=== PATIENT | female | born 1955 | race Caucasian/White ===

== ENCOUNTER 2016-08-16 09:09 | Inpatient (IN) | payer SELFPAY ==
[~2016-08-16] VITALS: Ht 172.7 cm; Wt 87.9 kg
--- NOTE | ~2016-08-16 | CON ---
PATIENT'S NAME: NIMA ARSHAD [facility] AGE: 61 Y [address] ROOM: [address] [place], [place] [address] LOCATION: GPCU ADMIT DATE: 08/16/2016 Consultation DISCHARGE DATE: FAMILY PHYSICIAN: PHYSICIAN, NO ATTENDING PHYSICIAN: LINDY ISAAC V DATE OF CONSULTATION: 08/23/2016 REFERRING PHYSICIAN: Yuki Parham MD REASON FOR CONSULTATION: Evaluation and management of hypoxia. CHIEF COMPLAINT: Shortness of breath. HISTORY OF PRESENT ILLNESS: This is a 61-year-old female with history of longstanding tobacco abuse, recent heavy alcohol abuse, anxiety, posttraumatic stress disorder, and other comorbidities, who was admitted on August 16, 2016, for profound weakness in context of heavy alcohol abuse. The patient presented to the emergency room because of extreme weakness and tiredness with generalized tremors. She was found to have alcoholic ketoacidosis with a pH of 7.08 and a bicarb of 13. Her pCO2 was 40 at that time. She was admitted to the hospital and started on alcohol detoxification pathway. However, during her hospital stay, she started having paroxysmal atrial fibrillation episodes with a rapid ventricular rate at times of up to 200. For this reason, she was started on Cardizem drip and therapeutic Lovenox. At the time of her admission, the patient was not requiring supplemental oxygen. However, approximately 2 days after admission, she started requiring oxygen between 2 and 3 liters. An ABG done today on room air showed a pH of 7.48, pCO2 of 41, and pO2 of 54 with a base excess of 6.4. Chest x-ray from August 19, 2016, revealed vascular congestion while a chest x-ray from yesterday raised the possibility of left lower lobe atelectasis. The patient denies ever being diagnosed with chronic respiratory issue including asthma, COPD, and pulmonary fibrosis. Prior to this admission, she denies feeling short of breath or having a chronic cough. She has been feeling more short of breath lately especially when she ambulates on room air. An overnight oximetry from August 21, 2016, to August 22, 2016, revealed severe nocturnal hypoxia after the patient spent 9 hours, 41 minutes, and 8 seconds with oxygen saturation less than 89%. Her desaturation event index was elevated at 10.4 at that time. She also complains of chronic excessive daytime sleepiness and fatigue especially after she started drinking heavily. Currently, she is on therapeutic doses of Lovenox and recently was started on Coumadin for her paroxysmal atrial fibrillation. She denies lower extremity swelling, although she had intermittent palpitations. PATIENT'S NAME: NIMA ARSHAD [facility] AGE: 61 Y [address] ROOM: [facility] [place] [address] LOCATION: GPCU ADMIT DATE: 08/16/2016 Consultation DISCHARGE DATE: FAMILY PHYSICIAN: PHYSICIAN, NO ATTENDING PHYSICIAN: LINDY ISAAC V PAST MEDICAL HISTORY: 1. Anxiety. 2. Depression. 3. PTSD with panic attacks. 4. Fibromyalgia. 5. Gastroesophageal reflux disease. PAST SURGICAL HISTORY: She had a complete hysterectomy in 2001. ALLERGIES: NO KNOWN DRUG ALLERGIES CURRENT MEDICATIONS: Reviewed as per chart. Notably, she was also started on Flagyl p.o. for C. diff colitis diagnosed on this admission on August 18. FAMILY HISTORY: Her father had Alzheimer disease and her mother had breast cancer. 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 Sometimes she is exposed to adhesives, although she does not wear any protective masks. She has been smoking approximately 6 cigarettes per day for a long time. She has had heavy alcohol abuse of approximately one pint of rum every day for the last 6 weeks because of multiple stressors at work. There is no history of illicit drug abuse. REVIEW OF SYSTEMS: Pertinent positives and negatives as per history of present illness. She also has intermittent headaches; impaired vision; seasonal allergies with recurrent sinus issues; heartburn; diarrhea, which has improved lately; anxiety/depression; panic attacks; and dysuria. Otherwise, a 12-point review of systems was performed and was negative. PHYSICAL EXAMINATION: VITAL SIGNS: Temperature was 98.1, heart rate was 85, respiratory rate was 18, blood pressure was 98/63, and oxygen saturation 91% on 2 liters and 83% on room air. Weight 196 pounds. Height 5 feet and 8 inches with a BMI of 29.9. GENERAL: She is a pleasant, female, sitting up in bed, seems anxious at times, but in no acute distress. HEENT: Atraumatic head. PERRLA. EOMI. Anicteric sclerae. Moist oral mucosa. No pharyngeal erythema. No oral thrush. NECK: Supple. No JVD. No LAD. Trachea midline. No thyromegaly. RESPIRATORY: She had decreased breath sounds without dullness on percussion at the left lung base, otherwise clear to auscultation. CARDIOVASCULAR: Regular rhythm and rate. No murmur, rubs, or gallops. ABDOMEN: Soft, nontender, and nondistended. Bowel sounds are present. PATIENT'S NAME: NIMA ARSHAD [facility] AGE: 61 Y [address] ROOM: [id number] [place] [id number] LOCATION: GPCU ADMIT DATE: 08/16/2016 Consultation DISCHARGE DATE: FAMILY PHYSICIAN: PHYSICIAN, NO ATTENDING PHYSICIAN: LINDY ISAAC V EXTREMITIES: No lower extremity edema. No cyanosis and no clubbing. LABORATORY DATA: Pertinent data as per history of present illness. She also had a bedside spirometry done today, which revealed an FVC of 1.36 L, which is 36% of predicted with FEV1 being 1.07 L, which is 36% of predicted as well. The FEV1 over FVC was normal at 78.2%. She had a very significant bronchodilator response of 39% at the level of FVC and 47% at the level of FEV1. INR was 1.4. Renal panel from yesterday was normal except a mildly low calcium of 8 and on low albumin of 2.1. ASSESSMENT: 1. Hypoxia. This is most likely due to an acute event, although I am not ruling out of chronic component like pulmonary fibrosis. More acute etiologies could be pulmonary edema, pulmonary embolism, or atelectasis. 2. Restrictive lung disease. This is suggested by her pulmonary function test with a severe decrease in her FVC and normal FEV1 over FVC. 3. Left lower lobe atelectasis. This is of unclear etiology, but possibly contributing to her hypoxia. 4. Tobacco abuse. This is chronic, although in not very large quantity. 5. Clostridium difficile colitis. 6. Excessive daytime sleepiness. 7. Metabolic alkalosis. This is mild and most likely in context of diuresis after the patient received furosemide yesterday. 8. Paroxysmal atrial fibrillation. Rate and rhythm control right now on chronic anticoagulation. PLAN: 1. We will check a chest CT with PE protocol to look for potential pulmonary embolism and atelectasis. 2. We will repeat a renal panel. I will add a proBNP to look for any evidence of heart strain. 3. I will start the patient on incentive spirometer to improve her deep breathing exercises. 4. The Hospitalist Team will continue antibiotics for the C. diff colitis. 5. I strongly encouraged the patient to stop smoking. The current assessment and plan was discussed with the patient and Dr. Parham. I would like to thank you, Dr. Parham, for giving me the opportunity to participate in this patient's care. PAIGE Noni WALKER MD PATIENT'S NAME: NIMA ARSHAD [facility] AGE: 61 Y [address] ROOM: [place] [address] [facility] AD[facility] DATE: 08/16/2016 Consultation DISCHARGE DATE: FAMILY PHYSICIAN: PHYSICIAN, NO ATTENDING PHYSICIAN: LINDY ISAAC/shaheed /[id number] d: 08/23/162047 t: 08/24/16 0936, CONSULTATION REPORT
--- NOTE | ~2016-08-16 | HP ---
PATIENT'S NAME: JEANCARLOS [facility] AGE: 61 Y [address] ROOM: [address] [address] LOCATION: GPCU ADMIT DATE: 08/16/2016 History & Physical DISCHARGE DATE: FAMILY PHYSICIAN: PHYSICIAN, NO ATTENDING PHYSICIAN: LINDY ISAAC V DATE OF SERVICE: CHIEF COMPLAINT: Alcohol abuse. HISTORY OF PRESENT ILLNESS: The patient is a 61-year-old female with a past medical history of posttraumatic stress disorder who has been having some difficulties with alcohol for the last 3 years. She presented to the ER after approximately 6 weeks of continuous daily alcohol consumption. Today, the patient became progressively more weak and tired. She reports tremors and wanted overall help for her difficulty. When she presented to the ER, she was found to have alcoholic ketoacidosis with pH 7.08, pCO2 40, and bicarb of 13. She also had alcohol level 0.194. She denies any suicidal or homicidal ideations and just wants help. REVIEW OF SYSTEMS: All systems have been reviewed and are negative aside from pertinent positives mentioned above. PAST MEDICAL HISTORY: Posttraumatic stress disorder and depression, denies otherwise. SOCIAL HISTORY: Significant for alcohol use, which the patient says about a bottle of rum daily. She also smokes approximately half-pack cigarettes a day for a long period of time. No other toxic habits that she endorses. FAMILY HISTORY: Reviewed and is noncontributory due to known underlying etiology for her presentation. PHYSICAL EXAMINATION: VITAL SIGNS: 151/70, respirations are 18, pulse is 115, temperature is 98.5, and satting 94% on room air. GENERAL: Appears as a well-developed, somewhat obese, elderly female, in no acute distress. PATIENT'S NAME: JEANCARLOS [facility] AGE: 61 Y [address] ROOM: [address] [address] LOCATION: GPCU ADMIT DATE: 08/16/2016 History & Physical DISCHARGE DATE: FAMILY PHYSICIAN: PHYSICIAN, NO ATTENDING PHYSICIAN: LINDY ISAAC V NEUROLOGICAL: Exam is significant for some fine tremor, but no focalizing deficit. EYES: Exam shows pupils are equal and reactive to light. LYMPHATIC: Exam shows no cervical lymphadenopathy. ENDOCRINE: Exam shows no thyromegaly. LUNGS: Clear to auscultation in all waterman. GI: Abdomen is soft, nontender, nondistended. : Exam reveals no costovertebral angle tenderness. VASCULAR: Exam reveals 2+ pedal pulses. MUSCULOSKELETAL: Exam shows no muscle or joint abnormalities. SKIN: Warm and dry. PSYCHIATRIC: Exam is negative for suicidal or homicidal ideations, but is significant for some depression. LABORATORY DATA: Lab exams of significance are described in the HPI. EKG shows normal sinus rhythm with no other significant abnormalities. ASSESSMENT AND PLAN: This is a 61-year-old female who will be admitted with: 1. Alcoholic ketoacidosis. She has already received normal saline as well as been started on dextrose in the ER. We will continue her on dextrose and intravenous hydration. We will recheck her electrolytes as well as a VBG, lactate, and ketones after several hours of this therapy. If we do not see considerable improvement, we will consider a bicarb drip though at this point I do not see its utility as we have to correct the underlying problem. 2. Acute alcohol intoxication. We will provide her with thiamine, folate, and multivitamin. 3. Expected alcohol withdrawal. Some of this is already occurring. We will put her on p.r.n. Ativan for now. We will start her on a formal Librium taper tomorrow morning. 4. Depression. We will continue Prozac. 5. Deep vein thrombosis prophylaxis will be instituted if the patient stays in the hospital for more than 48 hours. Additional management will depend on clinical course. Time dedicated to this patient encounter is 35 minutes. MD NIURKA ELLISON/shaheed PATIENT'S NAME: NIMA ARSHAD [facility] AGE: 61 Y [address] ROOM: [id number] [place] [id number] [facility] AD[facility] DATE: 08/16/2016 History & Physical DISCHARGE DATE: FAMILY PHYSICIAN: PHYSICIAN, NO ATTENDING PHYSICIAN: LINDY ISAAC V /[id number] D: [id number] HISTORY & PHYSICAL
--- NOTE | ~2016-08-16 | ECHO ---
Transthoracic Echocardiography Report (TTE) Demographics Patient Name NIMA ARSHAD Date of Study 08/18/2016 Patient Number [id number] Visit Number [id number] Date of 1955 Room Number G6314 Gender Female Number Age 61 year(s) Referring William Garrido V Asic Verification Engineer Gretchen Hampton [facility], Physician RVT Eliza Dacosta Physician Interpreting Eliza Dacosta Associate Professor Of Radiology Physician Supervising Ordering Eliza Dacosta MD/MLP Physician Nurse Stress Senior Java Developer Conclusions Summary The estimated left ventricular ejection fraction is 55%. Diastolic assessment reveals Grade I diastolic dysfunction. Mild tricuspid regurgitation by color Doppler. Mild pulmonic valve regurgitation by color Doppler. Procedure Type of Study TTE procedure:2D Echocardiogram. Procedure Date Date: 08/18/2016 Start: 09:35 AM Study Location: Inpatient Portable Technical Quality: Fair due to poor acoustical window. Indications:Atrial fibrillation. Additional Indications:rvr Appropriate Use Criteria: 9 Patient Status: Routine Rhythm: Atrial fibrillation HR: 102 bpm BP: 106/57 mmHg M-Mode/2D Measurements LV Diastolic Dimension: 5.25 cm LV Systolic Dimension: 3.76 cm LV Septum Diastolic: 1 cm LV PW Diastolic: 0.94 cm AO Root Dimension: 2.4 cm Cardiac Output: 9.07 l/min AV Cusp Separation: 1.7 cm RV Diastolic Dimension: 1.45 cm LA volume: 37 ml IVC Inspiration: 0.7 cm LVOT: 2.2 cm RV Base: 4.13 cm LVOT VTI: 23.4 cm RV Mid: 3.19 cm LV Stroke volume: 88.91 ml TAPSE: 2.06 cm TDI-S': 15 cm/s Doppler Measurements AV Peak Velocity: 1.48 m/s MV Peak E-Wave: 0.66 m/s AV Peak Gradient: 8.76 mmHg MV Peak A-Wave: 0.81 m/s AV Mean Gradient: 5 mmHg MV E/A Ratio: 0.81 LVOT Peak Velocity: 0.99 m/s MV P1/2t: 61 msec TR Gradient:26.01 mmHg PV Peak Velocity: 0.86 m/s Estimated RAP:3 mmHg PV Peak Gradient: 2.95 mmHg Estimated RVSP: 29 mmHg Estimated PASP: 29.01 mmHg E' Septal Velocity: 0.07 m/s A' Septal Velocity: 0.12 m/s E' Lateral Velocity: 0.09 m/s MV E/E' Ratio: 13 Findings Left Ventricle The estimated left ventricular ejection fraction is 50-55%.Diastolic assessment reveals Grade I diastolic dysfunction. Right Ventricle Grossly normal right ventricle structure and function. Left Atrium Grossly normal left atrial size. Right Atrium Grossly normal right atrial size. Mitral Valve Trivial mitral regurgitation by color Doppler. Aortic Valve The aortic valve is mildly sclerotic. Tricuspid Valve Mild tricuspid regurgitation by color Doppler. Pulmonic Valve Mild pulmonic valve regurgitation by color Doppler. Pericardial Effusion No evidence of pericardial effusion. Miscellaneous Visualized portions of the aortic root and ascending aorta appear normal in size. Pleural Effusion No evidence of pleural effusion. Signature dtt: YUDITH BOSS dtd: 08/18/16 0935 Physician Self Edit
--- NOTE | ~2016-08-16 | PUL ---
PATIENT'S NAME: NIMA ARSHAD [facility] AGE: 61 Y [address] ROOM: [facility] [place] [address] LOCATION: GPCU ADMIT DATE: 08/16/2016 Pulmonary DISCHARGE DATE: 08/25/2016 FAMILY PHYSICIAN: PHYSICIAN, NO ATTENDING PHYSICIAN: Hema Thomas V NAME OF PROCEDURE: Bedside Spirometry DATE OF PROCEDURE: August 23, 2016 TECH: ISAÍAS Echols REASON FOR EXAM: Hypoxia RESULTS: FVC was 1.36 liters which is 36% of predicted and low, FEV1 was 1.07 liters which is 36% of predicted and low, and FEV1/FVC was 78.2% and normal. The flow volume curve did not reveal any significant airflow limitation. After bronchodilator administration FVC increased to 1.89 liters which is a 39% increase and FEV1 increased to 1.57 liters which is a 47% increase. FEV1/FVC was 82.9%. PHYSICIAN INTERPRETATION: The patient has no airflow limitation but has a significant bronchodilator response. There is suggestion of restrictive lung disease but lung volumes are needed to confirm that. MD DONNA PERKINS/angie /[id number] dtt: 08/27/16 1554 , PAIGE WALKER dtd: 08/27/16 0815
--- NOTE | ~2016-08-16 | DS ---
PATIENT'S NAME: NIMA ARSHAD [facility] AGE: 61 Y [address] ROOM: [place] [address] LOCATION: GPCU ADMIT DATE: 08/16/2016 Discharge Summary DISCHARGE DATE: 08/25/2016 FAMILY PHYSICIAN: PHYSICIAN, NO ATTENDING PHYSICIAN: Hema Thomas V ADDENDUM: Home O2 at 2 L/minute at night and this is arranged through [facility] and will be setup today to use 2 L every night until she can have her polysomnography. BJORN GANN MD LM/shaheed /[id number] d: 08/26/16 0244 t: 09/03/16 0858, DISCHARGE SUMMARY
--- NOTE | ~2016-08-16 | ER ---
PATIENT'S NAME: JEANCARLOS [facility] AGE: 61 Y [address] ROOM: [place] [address] LOCATION: GPCU ADMIT DATE: 08/16/2016 ER/Outpatient Report DISCHARGE DATE: FAMILY PHYSICIAN: PHYSICIAN, NO ATTENDING PHYSICIAN: LINDY ISAAC V Time of Arrival: 0909 hours. Time of Evaluation: 0914 hours. CHIEF COMPLAINT: Anxiety. HISTORY OF PRESENT ILLNESS: The patient is a 61-year-old female, who presents to the emergency department today with a chief complaint of anxiety. She reports that over the past 8 weeks, she has had some issues at work. She reports that she has had increased alcohol intake since. Over the past couple of days, she has not been feeling well. She has continued her alcohol intake. She has had some nausea and vomiting x5 over the past 24 hours. She denies any suicidal ideation, homicidal ideation, no visual or auditory hallucinations. PAST MEDICAL HISTORY: PTSD. PAST SURGICAL HISTORY: Hysterectomy. SOCIAL HISTORY: The patient smokes half pack per day. Drinks alcohol daily over the past couple of weeks. Does have a history of alcohol use in the past. SOCIAL HISTORY: The patient denies any illicit drug use. ALLERGIES: NO KNOWN DRUG ALLERGIES. MEDICATIONS: 1. Hydroxyzine. 2. Fluoxetine. PRIMARY CARE DOCTOR: None. REVIEW OF SYSTEMS: PATIENT'S NAME: JEANCARLOS NIMA L [facility] AGE: 61 Y [address] ROOM: [place] [address] LOCATION: GPCU ADMIT DATE: 08/16/2016 ER/Outpatient Report DISCHARGE DATE: FAMILY PHYSICIAN: PHYSICIAN, NO ATTENDING PHYSICIAN: LINDY ISAAC V All systems are reviewed by myself and are negative with the exception of those discussed in the HPI and past medical history. PHYSICAL EXAMINATION: VITAL SIGNS: Blood pressure 158/89, pulse 124, respiratory rate 20, temperature 98.1, oxygen saturation 98% on room air. GENERAL: The patient is a 61-year-old female, who is anxious and crying, but appears in no other acute distress. HEENT: Normocephalic, atraumatic. Pupils are equal, round, and reactive to light. NECK: Supple. There is no nuchal rigidity. CARDIOVASCULAR: Tachycardic. No murmurs, rubs, or gallops. LUNGS: Clear to auscultation bilaterally. No wheezes, rales, or rhonchi. ABDOMEN: Soft, nontender, and nondistended. No rebound, rigidity, or guarding. MUSCULOSKELETAL: The patient moves all 4 extremities. SKIN: Warm and dry. There are no rashes or lesions noted. LABORATORY DATA AND X-RAYS: Labs and x-rays are obtained. CBC is normal except for hemoglobin of 15.4, hematocrit 48.4. CMP is unremarkable except for a CO2 of 13, glucose 63. AST is 127, ALT is normal, alkaline phosphatase is normal. Alcohol is 0.194. Salicylates are 3.6. Acetaminophen is less than 2.0. Urinalysis shows protein 30, ketone 150, blood 150, white blood cell count negative, rbc's 50-100, epithelials are rare, bacteria is negative. TSH is normal. EKG is obtained, is interpreted by myself, shows sinus tachycardia with a rate of 109, normal axis, normal interval, no ST elevation. There are T-wave inversions in V1, V2, V3. Urine drug screen is negative. Repeat renal panel is unremarkable except for CO2 of 11, glucose of 60. acetone is positive 1:8. Venous blood gas is obtained, does show 7.08, 40, 45, 11.9, -17.4. Lactate is 5.4. IMPRESSION: 1. Alcoholic ketoacidosis. 2. Stress disorder. 3. Alcohol intoxication. 4. Elevated liver enzymes. 5. Abnormal EKG. 6. Hematuria. 7. Initial visit. EMERGENCY DEPARTMENT COURSE: The patient was brought back to the examination room. Seen and evaluated by myself. IV is established. Laboratory analysis and imaging are obtained as described above. The patient was given 3 L of normal saline. She was given 4 mg of Zofran IV. She was given 0.5 mg Ativan. She was given another 4 mg PATIENT'S NAME: NIMA ARSHAD [facility] AGE: 61 Y [address] ROOM: [address] [place] [id number] LOCATION: GPCU ADMIT DATE: 08/16/2016 ER/Outpatient Report DISCHARGE DATE: FAMILY PHYSICIAN: PHYSICIAN, NO ATTENDING PHYSICIAN: LINDY ISAAC and 1 g of Tylenol as well as another 0.5 mg Ativan, 100 mg of thiamine. She was started on D5 1/2 normal saline. I discussed results with the patient and her friend who is at the bedside. I have contacted Dr. Isaac with the Hospitalist Service. He does agree to accept the patient for further evaluation, treatment, and management. DISPOSITION: The patient is admitted under the care of Hospitalist Service in stable condition. DO NAHOMY FRANCO/modl /[id number] d: 08/16/162039 t: 08/24/16 0854, OUTPATIENT REPORT
--- NOTE | ~2016-08-16 | CON ---
PATIENT'S NAME: NIMA ARSHAD [facility] AGE: 61 Y [address] ROOM: [address] [address] [facility] ADMIT DATE: 08/16/2016 Consultation DISCHARGE DATE: FAMILY PHYSICIAN: PHYSICIAN, NO ATTENDING PHYSICIAN: LINDY ISAAC V REFERRING PHYSICIAN: Jef Branham MD REASON FOR CONSULT: Recurrent episodes of atrial fibrillation with rapid ventricular rate. HISTORY OF PRESENT ILLNESS: Ms. Arshad is a 61-year-old female with a past medical history of posttraumatic stress disorder. The patient stated that she started having binge drinking for the last 6 weeks. She was drinking almost a pint of rum every day. She also smokes about 6 cigarettes per day. On the day of admission, the patient stated that she felt progressively more weak and tired, and she also noted tremors and sought medical help. When she presented to the emergency room, she was found to have alcoholic ketoacidosis with a pH of 7.08, pCO2 of 40, bicarbonate of 13, and alcohol level was 0.194. Presently, she is complaining of anxiety. She denied any chest pain. No history of increasing shortness of breath. She complained of frequent palpitations. The patient denied any syncopal episodes. She was placed on medical therapy for alcoholic ketoacidosis and alcohol detoxification. She was noted to have recurrent episodes of atrial fibrillation with rapid ventricular rate with these episodes mostly lasting less than a minute. No history of loss of consciousness. No history of chest pain. No history of fever. REVIEW OF SYSTEMS: The patient stated she has noted gradual decrease in vision. History of nausea and vomiting is present. No history of dysphagia. No history of chest pain or increasing shortness of breath. History of frequent palpitations is present. No history of loss of consciousness. She also complained of frequent diarrhea. No history of leg pains or leg cramps. Review of other systems is essentially negative. PAST MEDICAL HISTORY: Posttraumatic stress disorder and depression. PERSONAL HISTORY: Smokes 6 cigarettes per day, and history of alcoholic binge drinking is present. SOCIAL HISTORY: The patient is and lives by herself. FAMILY HISTORY: PATIENT'S NAME: NIMA ARSHAD [facility] AGE: 61 Y [address] ROOM: [address] [address] [facility] ADMIT DATE: 08/16/2016 Consultation DISCHARGE DATE: FAMILY PHYSICIAN: PHYSICIAN, NO ATTENDING PHYSICIAN: LINDY ISAAC V The patient denied family history of premature coronary artery disease. PHYSICAL EXAMINATION: GENERAL: She is awake, alert, oriented, and appears anxious. VITAL SIGNS: Her pulse rate is 115 beats per minute, blood pressure is 113/70 mmHg, and respiratory rate is 18. The patient has frequent bursts of atrial fibrillation with rapid ventricular rate with ventricular rate of 200 beats per minute. HEENT: Her head is atraumatic and normocephalic. Tongue is moist. NECK: No significant jugular venous distention is present. SKIN: Warm and dry. CARDIOVASCULAR: S1 and S2 are audible. They are regular in rate and rhythm. However, during episodes of rapid ventricular rate, her heart rhythm is irregular. RESPIRATORY: Her chest is clear to auscultation. ABDOMEN: Mildly distended. Bowel sounds are present. EXTREMITIES: No significant pedal edema. NEUROLOGIC: She is awake, alert, and oriented. Appears anxious. LABORATORY DATA: Arterial blood gases: First set was 7.08 pH, pCO2 of 40, and PO2 of 45. Second set was pH 7.31, pCO2 of 33, and PO2 of 105. Sodium 138, potassium 3.8, chloride 105, CO2 of 22, glucose 127, calcium 7.2, BUN 11, and creatinine 0.7. Total protein 5.7. Albumin 2.9. Alkaline phosphatase 86, AST 85, and ALT 53. Magnesium 1.9. Salicylate level 3.6. White blood cell count 6.8, hemoglobin 12.1, and platelet count 157, which has decreased from 15.4, possibly secondary to dilution anemia. EKG showed atrial fibrillation with ventricular rate of 202 beats per minute. Nonspecific ST-T wave changes. ASSESSMENT AND PLAN: 1. Recurrent episodes of atrial fibrillation with rapid ventricular rate. 2. Alcoholic ketoacidosis. 3. Posttraumatic stress disorder. 4. Alcohol dependence. 5. Tobacco dependence. PLAN: In view of recurrent episodes of atrial fibrillation with rapid ventricular rate, we will start the patient on Cardizem bolus and drip per protocol. In view of the patient being female, her [id number] score is 1. Discussed with the patient the risks and benefits of anticoagulation. We will start the patient on Lovenox and continue to monitor H and H. Monitor and correct electrolytes. Replace magnesium. Continue medical therapy for alcoholic ketoacidosis and alcohol detoxification. The patient was counseled on tobacco cessation as well as alcohol cessation. The plan of care was discussed with PATIENT'S NAME: NIMA ARSHAD [facility] AGE: 61 Y [address] ROOM: [place] [address] LOC[facility]: [facility] ADMIT DATE: 08/16/2016 Consultation DISCHARGE DATE: FAMILY PHYSICIAN: PHYSICIAN, BAYLEE ATTENDING PHYSICIAN: LINDY ISAAC V nursing staff as well as with Dr. Branham. Thank you for allowing us in taking part in the care of this pleasant patient. MD ORI ATWOOD/shaheed /[id number] d: 08/17/16 1216 t: 08/26/16 1405, CONSULTATION REPORT
--- NOTE | ~2016-08-16 | PUL ---
PATIENT'S NAME: NIMA ARSHAD [facility] AGE: 61 Y [address] ROOM: [address] [address] LOCATION: [facility] ADMIT DATE: 08/16/2016 Pulmonary DISCHARGE DATE: FAMILY PHYSICIAN: PHYSICIAN, NO ATTENDING PHYSICIAN: LINDY ISAAC V NAME OF PROCEDURE: Overnight Pulse Oximetry DATE OF PROCEDURE: August 21 to August 22, 2016 REASON FOR EXAM: Nocturnal hypoxemia RESULTS: The test was performed on room air. The recording time was 9 hours, 44 minutes and 16 seconds, with a total valid sampling time of 9 hours, 43 minutes. The highest pulse was 119, lowest pulse was 88, with a mean pulse of 96. The highest SpO2 was 91%, lowest SpO2 was 71%, with a mean SpO2 of 82.4%. The patient spent 9 hours, 41 minutes and 8 seconds with SpO2 less than 89%, representing 99.7% of the total sleep time. The desaturation event index was elevated at 10.4. PHYSICIAN INTERPRETATION: The patient has evidence of severe nocturnal hypoxia and would qualify for supplemental oxygen as per Medicare criteria. However, because of the severity of her nocturnal hypoxia with an elevated desaturation event index a sleep study is recommended at this time. MD DONNA PERKINS/angie /[id number] dtt: 08/23/16 1016 AARON RADU F dtd: 08/23/16 0947
--- NOTE | ~2016-08-16 | DS ---
PATIENT'S NAME: NIMA ARSHAD AGE: 61 Y [address] ROOM: [address] [address] LOCATION: [facility] ADMIT DATE: 08/16/2016 Discharge Summary DISCHARGE DATE: 08/25/2016 FAMILY PHYSICIAN: PHYSICIAN, NO ATTENDING PHYSICIAN: Hema Thomas V PRINCIPAL DISCHARGE DIAGNOSIS: Alcoholic ketoacidosis. SECONDARY DIAGNOSES: 1. Acute hypoxic respiratory failure. 2. Paroxysmal atrial fibrillation with rapid ventricular response. 3. Nocturnal hypoxemia, suspected obstructive sleep apnea. 4. Acute alcohol intoxication, alcohol dependence. 5. Clostridium difficile colitis. 6. Anxiety and depression, posttraumatic stress disorder. CONSULTATIONS: 1. Cardiology, Dr. Kay. 2. Pulmonology, Dr. Ashraf. PROCEDURES: 1. Trending nocturnal pulse ox on 08/21/2016 to 08/22/2016 showed severe nocturnal hypoxemia with saturation less than 89% for greater than 9 hours with a desat index of 10.4. 2. Echocardiogram done on the August 18, 2016, brief summary of findings:. a. Left ventricular ejection fraction 50% to 55%. b. Diastolic dysfunction, grade 1. c. Grossly normal right ventricular structure and function. d. Mildly sclerotic aortic valve. BRIEF HISTORY: Ms. Arshad is a 61-year-old female known to have posttraumatic stress disorder and difficulty with alcohol for about the past 3 years, but admitted on presentation to the emergency room with 6 weeks of continuous daily alcohol consumption. The patient had become progressively tired, weak, reporting tremors, and seeking help at the time of admission. On admission to the emergency room, pH is 7.08, CO2 40, bicarb 13, and alcohol level is 0.194. She was admitted and placed on protocol to monitor for alcohol withdrawal symptoms. Cardiology was consulted on 08/17/2016 when she was noted to be having recurrent episodes of AFib with rapid ventricular response and echo findings are as above. She was started on Cardizem bolus and drip per protocol. Because of a [id number] score of 1, she was started on therapeutic Lovenox dosing. She was later started on warfarin. Her INR has been very slow to PATIENT'S NAME: NIMA ARSHAD AGE: 61 Y [address] ROOM: [facility] [place], [place] [address] LOCATION: [facility] ADMIT DATE: 08/16/2016 Discharge Summary DISCHARGE DATE: 08/25/2016 FAMILY PHYSICIAN: PHYSICIAN, NO ATTENDING PHYSICIAN: Hema Thomas V increase and she was started on 5 mg, 2 nights ago she had 7.5 mg, and last night she had 10 mg of warfarin. Current INR is 1.8. The patient continued to have O2 requirement and her nocturnal pulse ox was obtained and the results as above. In addition to nocturnal hypoxemia, she continued to have low sats with ambulation. Further evaluation showed some evidence of pulmonary edema by chest x-ray that was not very significant; so, Pulmonary consult was obtained, and she was found to have a left lower lobe atelectasis and some restrictive lung disease on PFTs. Also, she has a chronic tobacco abuse, but not heavy. She had a CTPE protocol and this showed no PE, but bilateral effusions, [id number], with septal interstitial thickening and bronchial wall thickening bilaterally, upper lobe ground glass consolidation, most suspicious for pulmonary edema. She was started on intermittent Lasix. She was initially given a single dose of Lasix and then started on b.i.d. dosing 40 mg on the . She has had excellent diuresis to this with good improvement in physical exam and only minimal crackles in the bases today; and indeed, her pulse ox on ambulation remains 89% or greater this afternoon and she has a 94% O2 sat at rest today. She has been encouraged to do incentive spirometer now and at home for this. We have encouraged smoking cessation. We encouraged to continue with the NicoDerm patches. Incidentally, noted on the CT of the chest was cholelithiasis and fatty liver. The patient has been apprised of these results. Because of the above-noted nocturnal hypoxemia, she is also recommended to have outpatient polysomnography scheduled within a month for the high- suspicion of a diagnosis of obstructive sleep apnea. She developed diarrhea, which was positive for C. diff. She was started on oral Flagyl early in the week and has only to finish a few days the t.i.d. Flagyl. Her diarrhea stools have resolved, she is now having formed and infrequent stooling. She has significant issues with her PTSD, anxiety, and depression. She initially thought she wanted to decrease her dose of fluoxetine, but this has been discouraged. She will continue on Prozac. INSTRUCTIONS AT DISCHARGE: Low-fat diet due to her cardiac risk and the fatty liver and cholelithiasis. Activity as tolerated. Follow up with PCP in 1 week is recommended; however, [facility] not [facility] until about mid-month. She will need to go to Dr. Avitia's office in 2 days for an INR. She is to see Dr. Kay in 2 weeks and schedule outpatient polysomnography within the next month. She can follow up with Dr. Ashraf [facility] after the polysomnography in approximately PATIENT'S NAME: NIMA ARSHAD AGE: 61 Y [address] ROOM: [id number] [place] [id number] LOCATION: [facility] ADMIT DATE: 08/16/2016 Discharge Summary DISCHARGE DATE: 08/25/2016 FAMILY PHYSICIAN: PHYSICIAN, BAYLEE ATTENDING PHYSICIAN: Hema Thomas V 1 month. MEDICATIONS AT THE TIME OF DISCHARGE: 1. Os-Pasha plus D p.o. b.i.d. with meals. 2. Diltiazem 60 mg p.o. t.i.d. 3. Fluoxetine 20 mg p.o. daily. 4. Folic acid p.o. daily. 5. Furosemide 20 mg p.o. daily. 6. Slow-Mag 1 tab p.o. b.i.d. 7. Flagyl 500 mg p.o. t.i.d. and through the 28 of August. 8. Multiple vitamin 1 daily. 9. NicoDerm transdermal 14 mg patch daily x7 days. 10. Florastor 250 p.o. b.i.d. avoid taking with her antibiotics. 11. Thiamine 100 mg p.o. daily. 12. Warfarin 7.5 mg p.o. daily. 13. Hydroxyzine 25 mg 1-2 tabs every 6 hours p.r.n. anxiety. CONDITION AT DISCHARGE: Good. BJORN GANN MD LM/shaheed /[id number] d: 08/26/16 0240 t: 09/03/16 0855, DISCHARGE SUMMARY
[2016-08-16 09:41] LABS: HEMATOCRIT 48.4 % (33.0-46.0); HEMOGLOBIN 15.4 g/dL (10.0-15.0); MCH 30.6 pg (27.0-34.0); MCHC 31.8 gm/dL (32.0-36.5); MCV 96.2 fl (83.0-98.0); MPV 9.2 fl (9.4-12.4); PLATELET COUNT 206 K/uL (150-450); RBC 5.03 M/uL (3.50-5.50); RDW-CV 13.3 % (11.9-14.6); WBC 9.6 K/uL (4.0-11.0)
[2016-08-16 10:04] LABS: ALBUMIN 3.7 gm/dL (3.5-5.0); ALK PHOS 121 IU/L (33-138); ALT 74 IU/L (12-78); AST 127 IU/L (10-40); BLOOD UREA NITROGEN 16 mg/dL (6-24); CALCIUM 7.7 mg/dL (8.5-10.5); CHLORIDE 103 mMol/L (96-110); ESTIMATED GFR (MDRD EQUATION) 57; POTASSIUM 4.7 mMol/L (3.7-5.1); SODIUM 139 mMol/L (135-145); TOTAL BILIRUBIN 0.6 mg/dL (0.0-1.5); TOTAL PROTEIN 7.4 g/dL (6.0-8.4)
[2016-08-16 10:04] LABS: BILIRUBIN URINE NEGATIVE (NEGATIVE); BLOOD URINE 150 /UL (NEGATIVE); GLUCOSE URINE NEGATIVE (NEGATIVE); KETONE URINE 150 mg/dL (NEGATIVE); LEUKOCYTES URINE NEGATIVE /UL (NEGATIVE); NITRITE URINE NEGATIVE (NEGATIVE); PROTEIN URINE 30 mg/dL (NEGATIVE); SPEC GRAVITY URINE 1.025 (1.003-1.035); UROBILINOGEN URINE NORMAL (NORMAL)
[2016-08-16 10:06] LABS: ANION GAP 27.7 (10.0-19.0); CO2 13 mMol/L (22-32)
[2016-08-16 10:08] LABS: COLOR URINE YELLOW (YELLOW); TURBIDITY URINE CLEAR (CLEAR)
[2016-08-16 10:14] LABS: ABSOLUTE NEUTROPHIL CT (ANC) 8.2 K/uL (1.8-7.8); LYMPHOCYTE # 0.5 K/uL (0.8-4.0); LYMPHOCYTE % 5 %; SEGMENTED NEUTROPHIL # 8.2 K/uL (1.8-7.8); SEGMENTED NEUTROPHIL % 85 %
[2016-08-16 10:18] LABS: BACTERIA URINE NEGATIVE (NEGATIVE); EPITHELIAL URINE RARE #/HPF (NEGATIVE); RBC URINE 50-100 #/HPF (NEGATIVE); WBC URINE NEGATIVE #/HPF (NEGATIVE)
[2016-08-16 10:20] LABS: BARBITURATE NEGATIVE (NEGATIVE); COCAINE NEGATIVE (NEGATIVE); OPIATES NEGATIVE (NEGATIVE)
[2016-08-16 10:33] LABS: AMPHETAMINE NEGATIVE (NEGATIVE)
[2016-08-16 13:18] LABS: ALBUMIN 3.3 gm/dL (3.5-5.0); BLOOD UREA NITROGEN 13 mg/dL (6-24); CHLORIDE 109 mMol/L (96-110); CREATININE 0.7 mg/dL (0.5-1.1); ESTIMATED GFR (MDRD EQUATION) > 60; PHOSPHORUS 2.3 mg/dL (2.5-4.9); POTASSIUM 4.8 mMol/L (3.7-5.1); SODIUM 140 mMol/L (135-145)
[2016-08-16 13:21] LABS: ANION GAP 24.8 (10.0-19.0); CO2 11 mMol/L (22-32)
[2016-08-16 14:01] LABS: BICARBONATE 11.9 mmol/L (18.0-23.0); PCO2 40 mmHg (35-45)
[2016-08-16 14:03] LABS: PO2 45 mmHg (80-90)
[2016-08-16] MEDS ORDERED: THERAGRAN-M1 TAB PO (15:11)
[2016-08-16] MEDS ORDERED: PROZAC20 MG PO (15:12)
[2016-08-16] MEDS ORDERED: ATARAX25 MG PO (15:12)
[2016-08-16] MEDS ORDERED: ADVIL200 MG PO (15:13)
[2016-08-16] MEDS ORDERED: IBUPROFEN PM C1 EACH PO (15:14)
--- NOTE | 2016-08-16 15:41 | NUR ---
Pt is 61 y/o female admit for alcoholic acidosis for hospitalist. Pt alert and oriented x3. Resides at home by herself. She states she had a confrontation with her boss at work and it triggered her PTSD. She started drinking ETOH heavily to cope with the situation. She states she's been drinking about a quart of Rum per day. Her last drink was this morning around 0100. Hx frequent falls,West Nile,fibromyalgia,SOB w activity,anxiety,depression,ETOH abuse,panic attacks,PTSD. She states she is fearful that some other health problem will be discovered while she's here although she has no specific complaints or symptoms. She's been drinking heavily for about 2 months now. Came through [facility].
--- NOTE | 2016-08-16 17:24 | NUR ---
Significant Event: A/O x3, coopertive with cares; very anxious along with being tearful et fearful at times. VS, SBP 151, HRs, 110-120s, on room air. Ativan given at 1647 for c/o anxiety in addition to severe shakiness. Up to bathroom with assist of 1; patient c/o being weak et is very unsteady when up. Follow up:
[2016-08-16 18:12] LABS: PCO2 33 mmHg (35-45)
[2016-08-16 18:13] LABS: BICARBONATE 16.6 mmol/L (18.0-23.0); HEMOGLOBIN 12.1 g/dL (10.0-15.0); MCH 31.2 pg (27.0-34.0); MCV 93.6 fl (83.0-98.0); MPV 8.9 fl (9.4-12.4); PO2 105 mmHg (80-90); RBC 3.88 M/uL (3.50-5.50); RDW-CV 13.2 % (11.9-14.6); WBC 6.8 K/uL (4.0-11.0)
[2016-08-16 18:14] LABS: HEMATOCRIT 36.3 % (33.0-46.0); MCHC 33.3 gm/dL (32.0-36.5); PLATELET COUNT 157 K/uL (150-450)
[2016-08-16 18:29] LABS: ALBUMIN 2.9 gm/dL (3.5-5.0); ALK PHOS 86 IU/L (33-138); ALT 53 IU/L (12-78); ANION GAP 18.8 (10.0-19.0); AST 85 IU/L (10-40); BLOOD UREA NITROGEN 11 mg/dL (6-24); CALCIUM 6.8 mg/dL (8.5-10.5); CHLORIDE 107 mMol/L (96-110); CO2 18 mMol/L (22-32); CREATININE 0.7 mg/dL (0.5-1.1); ESTIMATED GFR (MDRD EQUATION) > 60; MAGNESIUM 1.9 mg/dL (1.3-2.6); PHOSPHORUS 0.9 mg/dL (2.5-4.9); POTASSIUM 4.8 mMol/L (3.7-5.1); SODIUM 139 mMol/L (135-145); TOTAL BILIRUBIN 0.7 mg/dL (0.0-1.5); TOTAL PROTEIN 5.7 g/dL (6.0-8.4)
[2016-08-16 19:24] LABS: ABSOLUTE NEUTROPHIL CT (ANC) 5.7 K/uL (1.8-7.8); LYMPHOCYTE # 0.6 K/uL (0.8-4.0); LYMPHOCYTE % 9 %; MONOCYTE # 0.5 K/uL (0.0-1.0); SEGMENTED NEUTROPHIL # 5.7 K/uL (1.8-7.8); SEGMENTED NEUTROPHIL % 84 %
--- NOTE | 2016-08-17 04:34 | NUR ---
Pt a/o x3-4. VSS on 2L, afebrile. HR con't to be slightly tachy 110's. con't to be very tremorous. Ativan given last at hs - 2mg. started on librium. pt states no navarrete, n/v/d or other detox symtpoms. Only one currently present is tremors and occasionally sweaty. BSC- only voided 1x- 200 out. vomitted 200 reddish clear emesis. gave zofran-n/v gone post. no other c/o pain. Plan:Con't detox protocol
[2016-08-17 06:28] LABS: BLOOD UREA NITROGEN 11 mg/dL (6-24); CHLORIDE 105 mMol/L (96-110); CO2 22 mMol/L (22-32); CREATININE 0.7 mg/dL (0.5-1.1); ESTIMATED GFR (MDRD EQUATION) > 60; MAGNESIUM 1.9 mg/dL (1.3-2.6); SODIUM 138 mMol/L (135-145)
[2016-08-17 06:30] LABS: ANION GAP 14.8 (10.0-19.0); CALCIUM 7.2 mg/dL (8.5-10.5); PHOSPHORUS 1.2 mg/dL (2.5-4.9); POTASSIUM 3.8 mMol/L (3.7-5.1)
[2016-08-17 12:09] LABS: CPK 192 IU/L (21-215)
[2016-08-17 14:45] LABS: ANION GAP 13.5 (10.0-19.0); BLOOD UREA NITROGEN 10 mg/dL (6-24); CALCIUM 7.7 mg/dL (8.5-10.5); CHLORIDE 104 mMol/L (96-110); CO2 26 mMol/L (22-32); CREATININE 0.8 mg/dL (0.5-1.1); ESTIMATED GFR (MDRD EQUATION) > 60; MAGNESIUM 1.9 mg/dL (1.3-2.6); POTASSIUM 3.5 mMol/L (3.7-5.1); SODIUM 140 mMol/L (135-145)
[2016-08-17 14:48] LABS: PHOSPHORUS 0.9 mg/dL (2.5-4.9)
[2016-08-17 17:57] LABS: CPK 171 IU/L (21-215)
--- NOTE | 2016-08-17 18:01 | NUR ---
Significant Event: A/O x3, seems to be forgetful at times; anxious, tearful and fearful at times. VS, SBPs 100-140s, HRs 90-220s, on room air. At approximately 1015 telemetry called stating that patient was having brief runs of what appeared to be afib/aflutter with HRs 180-220s. Dr. Branham notified et orders recieved. Patient continued to have runs of afib becoming longer in duration. Dr. Kay consulted. Cardizem gtt started per protocol after recieving a 10 mg cardizem bolus; cardizem currently at 10mg/hr. 30 mmol of potassium phosphate infusing for a phos level of 0.9; IVF switched to a banana bag. Continues to have tremors et shakes. Ativan given x2, last at 1116; relief noted. Up with 1 assist to bathroom if heart rates stable otherwise to [facility]; urine is orangish in color et strong smelling. Follow up:
[2016-08-18 00:11] LABS: CPK 142 IU/L (21-215)
--- NOTE | 2016-08-18 04:51 | NUR ---
pt a/o x3. ns/afib/tachy 90-110's. attempted to wean cardizem gtt to 5mg -no go, con't at 10. potassium phos given. banana bag given-still infusing. no c/o pain. given 1mg prn ativan at hs for anxiety. still has some tremors but def less. very unsteady on her feet. incontinent of bm x2. voided x2. no emesis tonight. pt is convinced she is going home today. con't on librium Plan: con't current plan of care.
[2016-08-18 05:35] LABS: BASOPHIL % 0.3 %; EOSINOPHIL # 0.1 K/uL (0.0-0.5); EOSINOPHIL % 1.1 %; HEMATOCRIT 36.9 % (33.0-46.0); HEMOGLOBIN 12.4 g/dL (10.0-15.0); IMMATURE GRANULOCYTE % 0.5 %; LYMPHOCYTE # 0.7 K/uL (0.8-4.0); LYMPHOCYTE % 11.1 %; MCH 30.9 pg (27.0-34.0); MCHC 33.6 gm/dL (32.0-36.5); MONOCYTE # 0.6 K/uL (0.0-1.0); MONOCYTE % 8.8 %; MPV 9.9 fl (9.4-12.4); NEUTROPHIL % 78.2 %; NRBC % 0.3 /100WBC (0-0.00); RBC 4.01 M/uL (3.50-5.50); WBC 6.4 K/uL (4.0-11.0)
[2016-08-18 05:36] LABS: PLATELET COUNT 123 K/uL (150-450)
[2016-08-18 05:57] LABS: ALBUMIN 2.7 gm/dL (3.5-5.0); ALK PHOS 80 IU/L (33-138); ALT 51 IU/L (12-78); ANION GAP 11.6 (10.0-19.0); AST 99 IU/L (10-40); BLOOD UREA NITROGEN 8 mg/dL (6-24); CALCIUM 7.5 mg/dL (8.5-10.5); CHLORIDE 107 mMol/L (96-110); CO2 27 mMol/L (22-32); CREATININE 0.7 mg/dL (0.5-1.1); ESTIMATED GFR (MDRD EQUATION) > 60; POTASSIUM 3.6 mMol/L (3.7-5.1); SODIUM 142 mMol/L (135-145); TOTAL BILIRUBIN 0.8 mg/dL (0.0-1.5); TOTAL PROTEIN 5.4 g/dL (6.0-8.4)
--- NOTE | 2016-08-18 18:29 | NUR ---
Significant Event: A/O x3, cooperative with cares. VSS, SBPs 100-110s, HRs 90s, oxygen at 1 liter. No c/o pain; no ativan given today. Echo done, no report as of this time. Cardizem gtt weaned off; initial doses of oral cardizem given. 3 loose stools this shift. 40 of KCL given today for a level of 3.6. Continues to have tremors et boughts of anxiety; also having periods of confusion. Patient had thought had been here 6 days et stated had been up in the chair 2-3 times when had been in bed resting all day. Care management consult tomorrow for etoh treatment options. Follow up:stool specimen needed
--- NOTE | 2016-08-19 04:38 | NUR ---
Pt alert slept off/on throughout noc. vss on 1-2L nc, afebrile. kept taking o2 out of nose. dips to 85% on ra. no ativan given- gave librium for "anxiety." positive for CDIFF. started on PO flagyl/floristar. HR still 90-110's. con't to be incontinent of stool. ate very little for dinner Plan: Con't current plan of care
[2016-08-19 05:51] LABS: BASOPHIL % 0.5 %; EOSINOPHIL # 0.1 K/uL (0.0-0.5); EOSINOPHIL % 0.8 %; HEMATOCRIT 37.4 % (33.0-46.0); HEMOGLOBIN 12.3 g/dL (10.0-15.0); IMMATURE GRANULOCYTE # 0.1 K/uL (0.0-0.3); IMMATURE GRANULOCYTE % 1.5 %; LYMPHOCYTE # 1.3 K/uL (0.8-4.0); LYMPHOCYTE % 16.1 %; MCH 30.3 pg (27.0-34.0); MCHC 32.9 gm/dL (32.0-36.5); MCV 92.1 fl (83.0-98.0); MONOCYTE # 0.7 K/uL (0.0-1.0); MONOCYTE % 9.4 %; MPV 10.3 fl (9.4-12.4); NEUTROPHIL # (ANC) 5.6 K/uL (1.8-7.8); NEUTROPHIL % 71.7 %; NRBC % 0.5 /100WBC (0-0.00); PLATELET COUNT 146 K/uL (150-450); RBC 4.06 M/uL (3.50-5.50); WBC 7.8 K/uL (4.0-11.0)
[2016-08-19 06:12] LABS: ALBUMIN 2.5 gm/dL (3.5-5.0); ANION GAP 10.5 (10.0-19.0); BLOOD UREA NITROGEN 5 mg/dL (6-24); CALCIUM 7.7 mg/dL (8.5-10.5); CHLORIDE 104 mMol/L (96-110); CO2 29 mMol/L (22-32); CREATININE 0.6 mg/dL (0.5-1.1); ESTIMATED GFR (MDRD EQUATION) > 60; PHOSPHORUS 1.7 mg/dL (2.5-4.9); POTASSIUM 3.5 mMol/L (3.7-5.1); SODIUM 140 mMol/L (135-145)
--- NOTE | 2016-08-19 12:24 | NUR ---
Introduced self and CM role to Luna. She tells me that she lives here in [place] and she is planning on returning home when she is medically cleared to do so. She tells me that her family is around and supportive to her. I asked her if she would be interested in any resources for her alcohol issues. She tells me that she doesn't want to go to inpatient treatement as it is "to expensive and I don't have the time or money to go to one of those." I let her know that I could at least call them in the area for inpatient treatment and see what they could do for a self pay person or if they had payment plans and then report back to her. She states she doesn't want my help with this and that she just plans to go to AA meetings. I asked if she would be willing to see a counselor for her alcohol issues and any other coping issues she might be having. Once again she denies wanting any resources for this. I asked if she would be fine with me at least printing her resources and going over them with her tomorrow and see if she might be more open to it at that time. She was fine with this. I let her know I would print papers off for her and then we would visit more tomorrow. At this time, she does tell me that her plan is to return home and attend AA meetings here in [place]. Will continue to follow and assist.
--- NOTE | 2016-08-19 17:05 | NUR ---
Significant Event: A/O x3, cooperative with cares. VSS, SBPs 110-130s, HRs 100s, 120s with activity; oxygen remains at 2 liters. No c/o pain or nausea. No ativan given this shift. EF 55% per echo. Continues to have loose stools; 2 this shift. PT/OT consulted; not evaluated patient as of this time. Dietary consult ordered. Up with assist of 1 et gait belt. Has been in bed sleeping the majority of the shift. Follow up: coumadin ordered per cardiology, if okay with hospitalist
[2016-08-19 20:46] LABS: PROTIME 10.1 SECONDS (9.6-11.1)
[2016-08-20 03:29] LABS: PROTIME 10.3 SECONDS (9.6-11.1)
[2016-08-20 03:37] LABS: ALBUMIN 2.4 gm/dL (3.5-5.0); BLOOD UREA NITROGEN 5 mg/dL (6-24); CALCIUM 7.8 mg/dL (8.5-10.5); CHLORIDE 106 mMol/L (96-110); CO2 27 mMol/L (22-32); CREATININE 0.7 mg/dL (0.5-1.1); ESTIMATED GFR (MDRD EQUATION) > 60; MAGNESIUM 1.9 mg/dL (1.3-2.6); PHOSPHORUS 3.3 mg/dL (2.5-4.9); SODIUM 142 mMol/L (135-145)
--- NOTE | 2016-08-20 04:37 | NUR ---
PT SLEPT ALL NIGHT. VSS ON 2L AFEBRILE. INCONTINENT BM X1. MAG JUMP X1, K+ PHOS 27 MMOL X1. SBA-STILL UNSTEADY. pLAN: CONT CURRENT PLAN OF CARE
--- NOTE | 2016-08-20 10:24 | NUR ---
A - PT SEEN PER CONSULT. 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 PERTINENT MEDS: ZOFRAN, FLORASTOR, B1, MVI, FOLATE. EST NEEDS: [id number] KCALS, 63-76 GM PROTEIN, 1 ML/KCAL FLUIDS. DIET: REGULAR, INTAKE 0-25%. PT STATES APPETITE IS DECREASED D/T NAUSEA. RECEPTIVE TO SUPPLEMENT. D - AT RISK W/ INADEQUATE ORAL INTAKE R/T DECREASED APPETITE AEB INTAKE RECORD. I - GOAL: 50% INTAKE BY NEXT REVIEW. M/E - WILL OFFER CHOCOLATE ENSURE BID W/ BF AND DINNER AND MONITOR ORAL INTAKE. F/U IN 2-4 DAYS.
--- NOTE | 2016-08-20 15:33 | NUR ---
Call from Deepthi Castro re:Luna's dismissal needs including paying for medicaions & possible need for home O2. I let her know that RT would have to work on getting that lined up for her upon dismissal so she would need to follow up with on that. I let her know that I did know that Luna was listed as self pay, but to my knowledge she did have a job that she worked at so she does have some sort of income. Deepthi went over some of the medications that she was worried about costing a lot for Luna upon dismissal, but after reviewing them with her, I did comfirm that most of them were on the $4 List at [facility], so I didn't feel like her medications would be super costly to her. I let Deepthi know I would continue to follow and see what I could help with as far as keeping the out of pocket cost to [facility] down. I also let her know that I was going to go back in and visit with her and give her a list of alcohol resources as well when it got closer to her being dismissed. Will continue to follow and assist.
--- NOTE | 2016-08-20 17:46 | NUR ---
Significant Event: A/O x3, cooperative with cares; has slept majority of the shift. VSS, SBPs 100-110s, HRs 90-100s, oxygen at 3 liters. No c/o pain. PT/OT/ST seen patient today; patient up to bathroom with assist of 1. Patient needs encouragment to eat. Follow up:
--- NOTE | 2016-08-21 04:45 | NUR ---
PT A/O X4. SBA X1. VSS ON 3L, AFEBRILE. SL. INCONTINENT OF BM X2. MUNDORFF RESTARTED LIBRIUM 10 MG TID AND MAG OX. PT SLEPT ALL NOC PLAN: CONT TO WORK WITH PT/OT
[2016-08-21 04:48] LABS: BASOPHIL % 0.3 %; EOSINOPHIL # 0.1 K/uL (0.0-0.5); EOSINOPHIL % 0.8 %; HEMATOCRIT 36.1 % (33.0-46.0); HEMOGLOBIN 11.7 g/dL (10.0-15.0); IMMATURE GRANULOCYTE # 0.2 K/uL (0.0-0.3); IMMATURE GRANULOCYTE % 1.6 %; LYMPHOCYTE # 1.5 K/uL (0.8-4.0); LYMPHOCYTE % 13.8 %; MCH 30.2 pg (27.0-34.0); MCHC 32.4 gm/dL (32.0-36.5); MONOCYTE # 1.8 K/uL (0.0-1.0); MONOCYTE % 16.5 %; NEUTROPHIL # (ANC) 7.2 K/uL (1.8-7.8); NRBC % 0.2 /100WBC (0-0.00); RBC 3.88 M/uL (3.50-5.50); RDW-CV 13.2 % (11.9-14.6); WBC 10.7 K/uL (4.0-11.0)
[2016-08-21 04:58] LABS: INR - (THERAPEUTIC) 1.1 (0.9-1.1); PROTIME 11.6 SECONDS (9.6-11.1)
[2016-08-21 04:59] LABS: PLATELET COUNT 216 K/uL (150-450)
[2016-08-21 05:05] LABS: ALBUMIN 2.3 gm/dL (3.5-5.0); ANION GAP 11.1 (10.0-19.0); CALCIUM 7.8 mg/dL (8.5-10.5); CHLORIDE 104 mMol/L (96-110); CO2 29 mMol/L (22-32); CREATININE 0.7 mg/dL (0.5-1.1); ESTIMATED GFR (MDRD EQUATION) > 60; POTASSIUM 4.1 mMol/L (3.7-5.1); SODIUM 140 mMol/L (135-145)
[2016-08-21 05:06] LABS: BLOOD UREA NITROGEN 8 mg/dL (6-24)
--- NOTE | 2016-08-21 17:10 | NUR ---
Significant Event: Patient A/O x 3. Up with SBA. VSS on 1L while awake and 3L while sleeping. Attempted to wean to room air. Denies shortness of breath and lungs sounds clear/clear and diminished. Up in halls ambulating with PT/OT. Slept most of the day. L)wrist PIV and RAC PIV saline locked. Denies any needs throughout the day. Attempting to at least drink ensures with the meals. Follow up: Continue as per plan of care. Plan for overnight trend ox tonight. Possibly discharge tomorrow.
--- NOTE | 2016-08-22 04:51 | NUR ---
Significant Event: PATIENT IS A/O X3. VSS. HR 90-100'S. SBP 110-120'S. AFEBRILE. 02 SATS IN LOW 80'S TO LOW 90'S DOING TREND OX STUDY ON RA. NO C/O PAIN. C/O NAUSEA. IVP ZOFRAN GIVEN X1 WITH RELIEF. LUNGS CLEAR THROUGHOUT. UP WITH SBA TO BEDSIDE COMMODE. BOWELS ACTIVE. WATERY BM X1. IV TO LEFT WRIST AND RIGHT AC BOTH SL. Follow up: CONTINUE TO MONITOR PER PLAN OF CARE. POSSIBLY HOME TODAY?
[2016-08-22 05:44] LABS: INR - (THERAPEUTIC) 1.2 (0.9-1.1); PROTIME 12.9 SECONDS (9.6-11.1)
[2016-08-22 05:51] LABS: ALBUMIN 2.1 gm/dL (3.5-5.0); ANION GAP 13.3 (10.0-19.0); BLOOD UREA NITROGEN 9 mg/dL (6-24); CHLORIDE 105 mMol/L (96-110); CO2 26 mMol/L (22-32); CREATININE 0.7 mg/dL (0.5-1.1); ESTIMATED GFR (MDRD EQUATION) > 60; PHOSPHORUS 2.8 mg/dL (2.5-4.9); POTASSIUM 4.3 mMol/L (3.7-5.1); SODIUM 140 mMol/L (135-145)
--- NOTE | 2016-08-22 11:17 | NUR ---
Social visit with Luna this morning. I talked with her about finding a primary care doctor to follow up with. Gave her the options of going to the [facility] here in town or following up with someone at the [facility] (Dr. Avitia or Dr. Ken). She didn't care which one of these people she saw, just whoever could get her in first. I let her know I would relay this to Deepthi Champion and then we would get her lined up with one to see when she was dismissed from here. We talked about her Medicaid questions, I did visit with Estefany in the [facility] office last evening and per Estefany, there is nothing that she can see that would make it so Luna would qualify for Medicaid. Estefany states she is happy to take the referral and Luna can call her with any questions, but she doubts she would be eligable to get Medicaid. I did leave Estefany's phone number with Luna at bedside. I also talked with Luna about her discharge medicaions. I knew she filled her medications at [facility] so I did call and do a viera check with them. Most of her meds were going to be under $40 to fill, some of them were either over the counter or on the $4 list. She tells me that she will be able to pay for her medications when she is dismissed from here. The only one that would be very expensive for her would be the Lovenox injections and those she would not be able to pay for. I let her know I would talk with Deepthi Ordonez and Dr. Parham about this and see what solution we could come up with. Luna did share with me that he had an [employer] policy that might help her out some so she was going to look into that once she was back home. I also talked with RT Pulido in the hallway about Luna. I let him know that I knew they did an overnight trendox on her, but she was self pay, so I wasn't for sure how she was going to pay for her home O2 needs. I asked that he follow up with her and figure that part of her discharge out. I later called Deepthi Ordonez and updated her to all of the above. I let her know about the barrier with the Lovenox injection cost and she tells me she will talk with Dr. Parham and see what she can figure out. I presented the option of keeping Luna another night and seeing if we could get her INR level up to where it was theraputic and then send her out just on Coumdin. Deepthi was going to look into this. No other questions, needs or concerns. Will continue to follow and assist.
--- NOTE | 2016-08-22 16:57 | NUR ---
Significant Event: VSS AND CONTINUES ON 2L/NC. O2 SATS DROPPED TO 81% WHILE AMBULATING WITH 2L, RECOVERS BACK TO THE LOW 90S WHEN AT REST. 2 VIEW XRAY WAS DONE. COUMADIN 7.5 MG GIVEN FOR INR OF 1.2. DENIES PAIN. RX WAS UP TO DO COUMADIN TEACHING. TEARFUL AT TIMES. Follow up: CONTINUE PLAN OF CARE; ? D/C TOMORROW.
--- NOTE | 2016-08-23 04:30 | NUR ---
Significant Event: PATIENT IS A/O X3 BUT DROWSY AT TIMES. VSS. HR 80-90'S. SBP 90-100'S. AFEBRILE. 02 SATS IN LOW TO MID 9O'S ON 2L 02 PER NC. NO C/O PAIN. LUNGS CLEAR/DIM THROUGHOUT. UP AD IVY TO BEDSIDE COMMODE. IN ISOLATION FOR CDIFF. LIQUID STOOL X1. VOIDS PER COMMODE. IV TO LEFT WRIST AND RIGHT AC BOTH SL. Follow up: CONTINUE TO MONITOR O2 NEEDS. HOME TODAY.
[2016-08-23 04:50] LABS: INR - (THERAPEUTIC) 1.4 (0.9-1.1); PROTIME 15.6 SECONDS (9.6-11.1)
[2016-08-23 09:11] LABS: PCO2 41 mmHg (35-45)
[2016-08-23 09:13] LABS: BICARBONATE 26.3 mmol/L (18.0-23.0); PO2 33 mmHg (80-90)
[2016-08-23 10:35] LABS: BICARBONATE 30.5 mmol/L (18.0-23.0); PCO2 41 mmHg (35-45)
[2016-08-23 10:49] LABS: PO2 54 mmHg (80-90)
--- NOTE | 2016-08-23 11:41 | NUR ---
Received information from [facility] for Inocencia to fill out. I do go into her room and talk with her. Also left the packet in there that she would need to fill out in order to get an appointment with them. I also let her know that per RN at [facility], the earliest they would have an opening would be mid-August. I asked her if she would be open to going over to see someone at [facility] of needed until she could get into the [facility]. She states she would be open to this if she had to go that route. I also let her know that I would talk with her RN for the day and update her as well. [facility] talk with Mabel to see what the status was on the paperwork that I gave her for the Lovenox injections. Had to leave a VM as she didn't answer. I updated MICHELLE Marrero to all of the above. Let her know that from my standpoint, I had talked with her about the [facility] and also about making sure she could pay for medications. I told Elida I would update her once I heard back re:Lovenox injections. Let her know if we ended up having to pay for them, that Dr. Parham would have to fill out a separate script for what she wanted the phamacy in house to fill and that would need to be done prior to her going. I reviewed Luna's labs this morning, her INR was only at 1.4, which was up from yesterday of 1.2, but still isn't up to where they want it to be. I am unsure if Dr. Parham will want to send her out today or not, but told MICHELLE Marrero to call me with any questions when it came to discharge. Selam did ask about what we were going to do about her home O2 needs. I let her know that the O2 needs would again need to be taken up with RT as CM didn't do anything with that, so I wasn't for sure what they had planned. Will continue to follow and assist.
[2016-08-23 13:58] LABS: ALBUMIN 2.3 gm/dL (3.5-5.0); ANION GAP 12.5 (10.0-19.0); BLOOD UREA NITROGEN 10 mg/dL (6-24); CALCIUM 8.6 mg/dL (8.5-10.5); CHLORIDE 103 mMol/L (96-110); CO2 29 mMol/L (22-32); CREATININE 0.7 mg/dL (0.5-1.1); ESTIMATED GFR (MDRD EQUATION) > 60; PHOSPHORUS 3.2 mg/dL (2.5-4.9); POTASSIUM 4.5 mMol/L (3.7-5.1); SODIUM 140 mMol/L (135-145)
--- NOTE | 2016-08-23 15:09 | NUR ---
A&O-DROWSY. SBA. HYPOTN 90'S-100'S. HR NS 80'S-90'S. 2L02. AFEBRILE. LS DIM/ CRACKLES/ FINE RALES TO BASES. ANXIOUS BEFORE CT ATARAX GIVEN . ABG'S PFT'S. DECREASED APPETITE. CIWA 0. SL L) WRIST & R) AC. NO C/O PAIN. CONT ISO FOR CDIF. VD'S WELL. LOOSE BM X1 TODAY.
[2016-08-24 04:23] LABS: INR - (THERAPEUTIC) 1.6 (0.9-1.1); PROTIME 17.7 SECONDS (9.6-11.1)
[2016-08-24 04:28] LABS: ALBUMIN 2.4 gm/dL (3.5-5.0); BLOOD UREA NITROGEN 10 mg/dL (6-24); CALCIUM 8.6 mg/dL (8.5-10.5); CHLORIDE 103 mMol/L (96-110); CO2 27 mMol/L (22-32); CREATININE 0.7 mg/dL (0.5-1.1); ESTIMATED GFR (MDRD EQUATION) > 60; PHOSPHORUS 3.3 mg/dL (2.5-4.9); SODIUM 141 mMol/L (135-145)
--- NOTE | 2016-08-24 04:34 | NUR ---
A/O. HR 80-90s. SBP 110-130s. 2L NC. AFEBRILE. SBA TO BATHROOM. PO LASIX STARTED. DENIES PAIN. NO BM. POSSIBLE DISSMISSAL TODAY.
--- NOTE | 2016-08-24 11:13 | NUR ---
A - NUT F/U. DECREASED APPETITE. WATERY STOOLS. 1-2+ EDEMA. LABS: ALB 2.4. MEDS: LASIX, FLORASTOR, NAUSEA, THIAMINE, FOLIC ACID, FLAGYL. DIET: REG. INTAKE: REF-100% (AVG ~48%) ENSURE BID NEEDS: [id number] KCAL, 63-76 G PRO D - INADEQUATE NUTRIENT INTAKE AT TIMES R/T DECREASED APPETITE AEB INTAKE RECORD. I - GOAL FOR INTAKE 50-100% BY NEXT ASSESSMENT. WILL INCREASE ENSURE TO TID. M/E - WILL MONITOR INTAKE. F/U IN 3-5 DAYS.
--- NOTE | 2016-08-24 17:16 | NUR ---
Significant Event:Patient has been up to bathroom. Has worn O2 at intervals throughout day. Is wanting to go home. No c/o pain. Had 2 BM's, states that the stools are getting firmer. No c/o pain. No signs of detox. Patient reports that she is sad, wants to go home and see puupy, Follow up:Monitor resp status
[2016-08-25 04:45] LABS: ANION GAP 12.8 (10.0-19.0); BLOOD UREA NITROGEN 8 mg/dL (6-24); CALCIUM 8.2 mg/dL (8.5-10.5); CHLORIDE 101 mMol/L (96-110); CO2 28 mMol/L (22-32); CREATININE 0.7 mg/dL (0.5-1.1); ESTIMATED GFR (MDRD EQUATION) > 60; INR - (THERAPEUTIC) 1.8 (0.9-1.1); POTASSIUM 3.8 mMol/L (3.7-5.1); SODIUM 138 mMol/L (135-145)
--- NOTE | 2016-08-25 05:33 | NUR ---
Significant Event: DENIES PAIN ALL NIGHT. SLEEPING WELL ALL NIGHT. UP AD IVY TO COMMODE. 1 LOOSE STOOL NOTED. O2 WEANED TO 1L. SATS ON ROOM AIR WERE 88%. Follow up:
[2016-08-25] MEDS ORDERED: OSCAL500 MG PO (13:58)
[2016-08-25] MEDS ORDERED: CARDIZEM60 MG PO (14:00)
[2016-08-25] MEDS ORDERED: FOLIC ACID1 MG PO (14:03)
[2016-08-25] MEDS ORDERED: SLOW-MAG (64 MG1 TAB PO (14:05)
[2016-08-25] MEDS ORDERED: FLAGYL500 MG PO (14:07)
[2016-08-25] MEDS ORDERED: NICOTINE PATCH1 EAC4 TRANS (14:11)
[2016-08-25] MEDS ORDERED: FLORASTOR250 MG PO (14:12)
[2016-08-25] MEDS ORDERED: THIAMINE HCL100 MG PO (14:14)
[2016-08-25] MEDS ORDERED: COUMADIN7.5 MG PO (14:15)
[2016-08-25] MEDS ORDERED: LASIX20 MG PO (14:21)
--- NOTE | 2016-08-25 17:19 | NUR ---
D:Patient is happy to be going home. Her INR is 1.8, will have to follow-up with INR in 2 days. Verbelizes understanding about filling out paperwork, and getting assistance. Son and patient verbelize understanding of new medications, and discharge instructions. Have cards and phone numbers to make foollow up appoiontments. Has number to call for oxygen, were to call when they got home, but son reports they were already at the house waiting for patient. Have personal belongings packed. Discharged per wheelchair, to return home, released to son.
== END 2016-08-25 15:50 | disposition disaster alternative care site (69) | DRG 896 ==
LOC: GMED 09:09 → GPCU 14:30
PROVIDERS: Emergency Medicine; Family Medicine; Internal Medicine; Internal Medicine Critical Care Medicine; Internal Medicine Interventional Cardiology; Nurse Practitioner Family; ADMIT Internal Medicine
DX: F10.220 Alcohol dependence with intoxication, uncomplicated (principal); J96.01 Acute respiratory failure with hypoxia; I47.2 Ventricular tachycardia; A04.7 Enterocolitis due to Clostridium difficile; E87.2 Acidosis; I48.92 Unspecified atrial flutter; E83.42 Hypomagnesemia; E83.51 Hypocalcemia; E87.6 Hypokalemia; F32.9 Major depressive disorder, single episode, unspecified; I48.0 Paroxysmal atrial fibrillation; F43.10 Post-traumatic stress disorder, unspecified; Z90.710 Acquired absence of both cervix and uterus; G47.33 Obstructive sleep apnea (adult) (pediatric); F41.9 Anxiety disorder, unspecified; K76.0 Fatty (change of) liver, not elsewhere classified; K80.20 Calculus of gallbladder without cholecystitis without obstruction; F17.210 Nicotine dependence, cigarettes, uncomplicated; K21.9 Gastro-esophageal reflux disease without esophagitis; M79.7 Fibromyalgia; J98.4 Other disorders of lung
CPT/HCPCS: G0480; J1650; J2060; J2405; J3411; J3475; J7030; J7040; J7050; Q9967

== ENCOUNTER → 2016-09-10 | Outpatient (CLI) | payer SELFPAY ==
[~2016-09-10] MED LIST: ADVIL200 MG PO; ATARAX25 MG PO; BUSPAR10 MG PO; CARDIZEM60 MG PO; COUMADIN7.5 MG PO; FLAGYL500 MG PO; FLORASTOR250 MG PO; FOLIC ACID1 MG PO; IBUPROFEN PM C1 EACH PO; LASIX20 MG PO; NICOTINE PATCH1 EAC2 TRANS; NICOTINE PATCH1 EAC4 TRANS; OSCAL500 MG PO; PROZAC20 MG PO; SLOW-MAG (64 MG1 TAB PO; THERAGRAN-M1 TAB PO; THIAMINE HCL100 MG PO; TYLENOL EXTRA500 MG PO
--- NOTE | ~2016-09-10 | PUL ---
PATIENT'S NAME: NIMA ARSHAD [facility] AGE: 61 Y [address] ROOM: [place] [address] LOCATION: [facility] ADMIT DATE: 09/10/2016 Pulmonary DISCHARGE DATE: FAMILY PHYSICIAN: HAYLEE MARKS MD ATTENDING PHYSICIAN: HAYLEE MARKS NAME OF PROCEDURE: Home sleep test DATE OF PROCEDURE: 09/10/16 TECH: Dolly Marte [facility] SUMMARY: Patient underwent home sleep testing using a type III device and was studied for a total of 8 hours 22 minutes. There were 58 obstructive apneas, 2 central apneas and 88 hypopneas for an apnea/hypopnea index moderately elevated at 17.7 events per hour. The supine apnea/hypopnea index was 26 events per hour. Non supine was less than 5 events per hour. Oxygen saturations ranged from 82-93%. Heart rate ranged from 58-89 beats per minute. SUMMARY: [id number] predominantly positional obstructive sleep apnea. PLAN: Patient will receive results from the ordering provider. MD JUNIE MACKEY/ /[id number] dtt: 09/15/16 1743 Vero David E. dtd: 09/13/16 1057
== END | disposition disaster alternative care site (69) ==
LOC: GSLP 13:40
DX: G47.36 Sleep related hypoventilation in conditions classified elsewhere (principal); G47.33 Obstructive sleep apnea (adult) (pediatric)
CPT/HCPCS: G0399

== ENCOUNTER 2017-01-10 02:50 | Inpatient (IN) | payer SELFPAY ==
[~2017-01-10] VITALS: Ht 172.7 cm; Wt 78.0 kg
--- NOTE | ~2017-01-10 | ER ---
PATIENT'S NAME: NIMA ARSHAD [facility] AGE: 61 Y [address] ROOM: [place] [address] LOCATION: [facility] ADMIT DATE: 01/10/2017 ER/Outpatient Report DISCHARGE DATE: FAMILY PHYSICIAN: PHYSICIAN, UNKNOWN ATTENDING PHYSICIAN: MANDI NEVILLE Time of Arrival: 0255. Time of Evaluation: 0255. CHIEF COMPLAINT: Anxiety. HISTORY OF PRESENT ILLNESS: The patient is a 61-year-old female who presents to the emergency department today with a chief complaint of anxiety. She reports that she feels short of breath and has chest pain. The patient reports she has been on 8-day leon drinking rum. She reports over the past 2 days; however, she has attempted to try to slow down and quit drinking. She has had some nausea and vomiting. She also reports some chest pain in the center of her chest. It is a burning type pain. It is currently mild in severity. She reports she feels very anxious. The patient denies any suicidal ideation and no homicidal ideation. No visual or auditory hallucinations. PAST MEDICAL HISTORY: Alcoholic ketoacidosis, anxiety, depression, PTSD, alcohol use, paroxysmal atrial fibrillation, nocturnal hypoxemia, C. diff colitis. PAST SURGICAL HISTORY: Hysterectomy. SOCIAL HISTORY: The patient smokes half a pack per day. Drinks alcohol daily. Denies any illicit drug use. ALLERGIES: NO KNOWN DRUG ALLERGIES. MEDICATIONS: Please see list. PRIMARY CARE DOCTOR: Dr. Avitia. REVIEW OF SYSTEMS: All systems are reviewed by myself and are negative with the exception of PATIENT'S NAME: NIMA ARSHAD [facility] AGE: 61 Y [address] ROOM: [place] [address] LOCATION: [facility]PCU ADMIT DATE: 01/10/2017 ER/Outpatient Report DISCHARGE DATE: FAMILY PHYSICIAN: PHYSICIAN, UNKNOWN ATTENDING PHYSICIAN: MANDI NEVILLE those discussed in HPI and past medical history. PHYSICAL EXAMINATION: VITAL SIGNS: Blood pressure 150/79, pulse 119, respiratory rate 20, temperature 98.7, oxygen saturation 96% on room air. GENERAL: The patient is a 61-year-old female, who appears her stated age. She does appear anxious. She is well developed, well nourished. HEENT. Head normocephalic, atraumatic. Pupils are equal, round, and reactive to light. NECK: Supple. There is no nuchal rigidity. CARDIOVASCULAR: Tachycardic. No murmurs, rubs, or gallops. LUNGS: Clear to auscultation bilaterally. No wheezes, rales, or rhonchi. ABDOMEN: Soft, nontender, and nondistended. No rebound, rigidity, or guarding. MUSCULOSKELETAL: The patient moves all 4 extremities. SKIN: Warm and dry. There is no rashes or lesions noted. LABORATORY DATA AND X-RAYS: EKG is obtained, is interpreted by myself at 0259, shows sinus tachycardia with a rate of 117, normal axis, normal interval. No ST elevation. There is some mild ST depression in V5, V6, and some nonspecific T-waves. Chest x-ray shows no acute process. CBC is unremarkable. CMP remarkable for CO2 of 12. LFTs normal. Magnesium is normal. Alcohol is 0.074. Beta hydroxybutyrate is greater than 60. Lipase is normal. Venous blood gas 7.25/23/102/10/-15.3. Urinalysis shows 30 protein, 150 ketones, 50 bilirubin, 5 to 10 rbc's, 0 to 2 wbc's, moderate bacteria. Lactate is 5.9. Cardiac enzymes are normal. ProBNP is 241. Procalcitonin 0.18. H. pylori is negative. PTT is 37, PT is 14.6, INR is 1.39. D-dimer is elevated at 0.74. CT scan of the chest is obtained. It is reviewed by [facility]. It shows suboptimal contrast opacification. No evidence of large or central pulmonary embolism, pulmonary nodules. Multiple hepatic steatosis and gallstone. IMPRESSION: 1. Alcoholic ketoacidosis. 2. Subtherapeutic INR. 3. Alcohol abuse. 4. Multiple pulmonary nodules. 5. Hepatic steatosis and cholelithiasis. 6. Initial visit. EMERGENCY DEPARTMENT COURSE: The patient brought back to the examination room. Seen and evaluated by myself. IV is established. Laboratory analysis and imaging are obtained as described above. The patient is given 4 baby aspirin, 4 mg Zofran IV. She is given 100 mg of thiamine IV. She is given a liter of normal saline. She is PATIENT'S NAME: JEANCARLOS NIMA L [facility] AGE: 61 Y [address] ROOM: [address] [address] [facility] ADMIT DATE: 01/10/2017 ER/Outpatient Report DISCHARGE DATE: FAMILY PHYSICIAN: PHYSICIAN, UNKNOWN ATTENDING PHYSICIAN: MANDI NEVILLE given a liter of D5 normal saline as well as a liter of a banana bag. I have discussed the results with Dr. Neville, the hospitalist, who is exhaust emissions inspector. He does agree to accept the patient for further evaluation, treatment, and management. I did discuss the results with the patient. She is also agreeable with the plan at this time. DISPOSITION: The patient is admitted under the care of Dr. Neville in stable condition. DO NAHOMY FRANCO/modl /[id number] d: 01/10/17629 t: 01/17/17 1119, OUTPATIENT REPORT
--- NOTE | ~2017-01-10 | HP ---
PATIENT'S NAME: NIMA ARSHAD [facility] AGE: 61 Y [address] ROOM: [address] [address] [facility] AD[facility] DATE: 01/10/2017 History & Physical DISCHARGE DATE: FAMILY PHYSICIAN: PHYSICIAN, UNKNOWN ATTENDING PHYSICIAN: MANDI NEVILLE DATE OF SERVICE: CHIEF COMPLAINT: Alcohol detoxification. HISTORY OF PRESENT ILLNESS: This is a 61-year-old female, who has a longstanding history of alcohol use disorder with alcohol withdrawal in the past, most recent admission over here with us was back in August 2016 for alcohol withdrawal as well. When the patient left the hospital at that time, the patient was sober, but she underwent a few meetings of the Alcoholic Anonymous because she did not really like it. In mid November 2016, her father in [place] and she could not afford to attend the due to financial burden for the transportation; therefore, she became depressed. She denies any suicidal ideation or suicidal attempt. Because she could not travel to attend her father's , the patient relapsed in alcohol drinking, and she has been drinking heavily starting on December 28, 2016, with average of 3 pints of rum per day, sometimes even more, and the last drink was 2 days ago. For the last 2 days, she also has been having nausea and vomiting and tremor in her hands and her legs. Last bowel movement was yesterday and it was normal. This morning, the patient suffered from symptoms from panic attack, which is not new to her. She has been complaining of diaphoresis and chest tightness. Because of this, the patient called the ambulance and was brought here for evaluation in the emergency room. REVIEW OF SYSTEMS: As mentioned in the history of present illness. All other systems were reviewed and they were negative except for those mentioned in the history of present illness. PAST MEDICAL HISTORY: 1. Posttraumatic stress disorder. 2. Depression. 3. Alcohol use disorder. 4. Tobacco use disorder. 5. History of atrial fibrillation which is paroxysmal and on Coumadin; however, the patient is noncompliant. 6. History of Clostridium difficile colitis in the past, already resolved. 7. Nocturnal hypoxia, on oxygen at home. She does not remember how many PATIENT'S NAME: NIMA ARSHAD [facility] AGE: 61 Y [address] ROOM: [id number] [place], [place] [address] [facility] AD[facility] DATE: 01/10/2017 History & Physical DISCHARGE DATE: FAMILY PHYSICIAN: PHYSICIAN, UNKNOWN ATTENDING PHYSICIAN: MANDI NEVILLE, but she used that for the obstructive sleep apnea. Currently awaiting to get a CPAP machine. 8. Chronic diastolic congestive heart failure. 9. Most recent echo was performed in July 2016. At that time, it showed EF of 55% of the left ventricle, grade 1 diastolic dysfunction. ALLERGIES: NO KNOWN DRUG ALLERGIES. HOME MEDICATIONS: Currently is being reconciled. SOCIAL HISTORY: The patient is an active cigarette smoker. She smokes about 1/2 pack per day for many years that she does not remember. She has a longstanding history of alcohol use disorder for many years with frequent alcohol withdrawal in the past. She denies any illegal drug use. FAMILY HISTORY: She says that her parents are healthy, and she cannot recall any medical problems; however, her father recently from old age. PAST SURGICAL HISTORY: Status post hysterectomy. PHYSICAL EXAMINATION: VITAL SIGNS: At the time of evaluation, temperature 99.2, heart rate 112, respirations 14, blood pressure 147/83, and saturation 100% on room air. GENERAL APPEARANCE: Alert and oriented x3. Currently has symptoms of asterixis in both hands. A little bit restless and anxious. HEENT: Pupils are equally round and reactive to light. Extraocular muscles intact. Anicteric sclerae. Dry oral mucosa. NECK: No JVD. CARDIOVASCULAR. Tachycardic. No murmurs, no rubs, no gallops. RESPIRATORY: Clear to auscultation. No rales, no rhonchi, no wheezing, no crackles. ABDOMEN: Soft, nontender, nondistended, bowel sounds present, and no mass. EXTREMITIES: No edema in the upper or lower extremities. SKIN: No ulcer, no rash, no cyanosis. NEUROLOGIC: Grossly nonfocal. LABORATORY DATA: Arterial blood gas shows pH of 7.25, pCO2 of 23, pO2 of 102, bicarbonate 10.1, saturation 97%. Lactic acid 5.9. CPK 137, troponin less than 0.04, proBNP 241. White blood cells 7.7, hemoglobin 15.8, hematocrit 45.9, platelets 211. PATIENT'S NAME: ARSHAD, NIMA L [facility] AGE: 61 Y [address] ROOM: [id number] [place], [place] [address] LOCATION: [facility]PCU ADMIT DATE: 01/10/2017 History & Physical DISCHARGE DATE: FAMILY PHYSICIAN: PHYSICIAN, UNKNOWN ATTENDING PHYSICIAN: MANDI NEVILLE Glucose 74, BUN 19, creatinine 0.9, sodium 134, potassium 4.0, chloride 95, CO2 of 12, calcium 8.4, anion gap 31, magnesium 2.4, total bilirubin 0.6, alkaline phosphatase 117, ALT 20, AST 31, albumin 3.9, total protein 7.4, INR 1.39, PTT 37. Urinalysis is negative for UTI. GFR 71. Alcohol level 0.074. Acetone positive. Lipase 120. CK-MB 2.7. Procalcitonin 0.18. D-dimer 0.74. IMAGING STUDIES: Chest x-ray on admission: The x-ray report is pending. The official one based on my review is unremarkable. Please follow up with the official report. CT PE protocol performed in the emergency room, the preliminary report was read as no finding to suggest pulmonary embolus. Please follow up with official report in the morning. EKG on admission in the emergency room, performed on January 10, 2017, at 2:59 a.m. shows sinus tachycardia, heart rate of 117, QRS of 90 milliseconds. ASSESSMENT AND PLAN: 1. Regarding her alcohol intoxication with high risk of alcohol withdrawal: Start a CIWA protocol. I will give her 1 dose of p.o. Valium 10 mg right now. IV fluids for hydration. She can have a cardiac diet. Further plan depends on clinical course. 2. Regarding her metabolic acidosis with increased anion gap from alcoholic ketoacidosis: As mentioned before, we will treat her with IV fluids for hydration. Given that the bicarb is low and due to the shortage of IV solution of the sodium bicarbonate, I will be giving her p.o. sodium bicarbonate tablet, 1 tablet 3 times a day until the bicarbonate level is improved. 3. Regarding her history of paroxysmal atrial fibrillation: Continue home medication with calcium channel delio. In addition, I will add a beta- delio and continue the Coumadin dosing per pharmacy for INR goal 2 to 3. 4. Regarding her active tobacco use: Do a nicotine patch 21 g transdermal daily. 5. Regarding her history of probable obstructive sleep apnea with nocturnal hypoxia: Continue oxygen at nasal cannula every night to titrate for saturation more than 94%. 6. Regarding her history of chronic diastolic congestive heart failure: Currently, the patient is dry; will be getting IV fluids for hydration in the setting of alcohol intoxication and high risk of alcohol withdrawal. 7. Regarding her deep vein thrombosis prophylaxis: She is on Coumadin. 8. She is a full code. Time spent in care on the day of admission 35 minutes where 10 minutes was PATIENT'S NAME: NIMA ARSHAD [facility] AGE: 61 Y [address] ROOM: [place] [address] [facility] ADMIT DATE: 01/10/2017 History & Physical DISCHARGE DATE: FAMILY PHYSICIAN: PHYSICIAN, UNKNOWN ATTENDING PHYSICIAN: MANDI NEVILLE spent on chart review and the remainder of the time was spent on interview, physical examination, and counseling. The counseling includes going over the plan of care with the patient and answered all her questions and concerns to her satisfaction. Further plan will depend on clinical course. MANDI NEVILLE MD CC/modl /[id number] D: [id number] T: [id number] HISTORY & PHYSICAL
--- NOTE | ~2017-01-10 | DS ---
PATIENT'S NAME: NIMA ARSHAD [facility] AGE: 61 Y [address] ROOM: [facility] [place], [place] [address] LOCATION: [facility]PCU ADMIT DATE: 01/10/2017 Discharge Summary DISCHARGE DATE: 01/11/2017 FAMILY PHYSICIAN: Michoacano Avitia MD ATTENDING PHYSICIAN: Ritchie Dominique DISCHARGE DIAGNOSES: 1. Alcoholic and lactic acidosis. 2. Severe dehydration. 3. Alcoholism with acute alcohol intoxication. 4. Smoker. 5. Hypertension. 6. Anxiety. 7. Financial crisis. 8. Malnutrition. 9. Hyponatremia. 10. Cholelithiasis. 11. Fatty liver. 12. Pulmonary nodules. REASON FOR ADMISSION: The patient was critically dehydrated and acidotic with alcohol level of 0.074 g/dL. Her beta hydroxybutyrate level was greater than 60, CO2 was 12, and her pH was 7.25 with a lactate of 5.9. She was severely dehydrated. White count remained normal, but hemoglobin dropped from 15.8 to 13.5 with fluids. Her platelets were normal. She initially had GFR of 71. Her sodium has remained abnormally low at 134. Potassium normal. CO2 has normalized to 23. Albumin yesterday was low at 3.1. Chest x-ray showed no vascular congestion, normal heart size. CT with PE protocol showed some limited opacification of the pulmonary arteries with no findings of PE. Lung parenchyma had improved since prior imaging. She had multiple small noncalcified pulmonary nodules, too small for characterization, and followup is recommended in 6 months. She did have fatty infiltration of the liver, and cholelithiasis was noted. CLINICAL COURSE: She was markedly improved with IV fluid support. I spent more than a half hour time [id number] with her today including physical exam and cognitive behavioral therapy as well as breathing techniques for anxiety and teaching of acupressure points. Discharge medications will be per med nursing recon. I did add BuSpar 10 mg t.i.d. to her list of medications, but she will be unable to pick those up due to financial concerns until 2 days post discharge. We did give her coping strategies to use until then, and she has family involved. Did recommend smoking and alcohol cessation completely, and she indicated understanding and PATIENT'S NAME: NIMA ARSHAD [facility] AGE: 61 Y [address] ROOM: [address] [place] [address] LOCATION: [facility]PCU ADMIT DATE: 01/10/2017 Discharge Summary DISCHARGE DATE: 01/11/2017 FAMILY PHYSICIAN: Michoacano Avitia MD ATTENDING PHYSICIAN: Ritchie Dominique also willingness to stop smoking and drinking. Diet should be ad ayah, activity ad ayah, and followup should be with her primary in the next couple or 3 days to check her prothrombin time. RECHECK PULMONARY NODULES IN 6 MONTHS. Note that discharge took greater than 30 minutes. MD ALISON MCADAMS/shaheed /[id number] d: 01/11/17 1859 t: 01/12/17 1559, DISCHARGE SUMMARY
[~2017-01-10 02:50] MED LIST changes: -BUSPAR10 MG PO; -NICOTINE PATCH1 EAC2 TRANS; -TYLENOL EXTRA500 MG PO
[2017-01-10 03:14] LABS: BICARBONATE 10.1 mmol/L (18.0-23.0); PCO2 23 mmHg (35-45); PO2 102 mmHg (80-90)
[2017-01-10 03:15] LABS: BASOPHIL % 0.4 %; HEMATOCRIT 45.9 % (33.0-46.0); HEMOGLOBIN 15.8 g/dL (10.0-15.0); IMMATURE GRANULOCYTE % 0.4 %; LYMPHOCYTE # 0.6 K/uL (0.8-4.0); LYMPHOCYTE % 8.3 %; MCH 30.1 pg (27.0-34.0); MCHC 34.4 gm/dL (32.0-36.5); MCV 87.4 fl (83.0-98.0); MONOCYTE # 0.6 K/uL (0.0-1.0); MONOCYTE % 7.2 %; MPV 9.9 fl (9.4-12.4); NEUTROPHIL # (ANC) 6.4 K/uL (1.8-7.8); NEUTROPHIL % 83.7 %; NRBC % 0 /100WBC (0-0.00); PLATELET COUNT 211 K/uL (150-450); RDW-CV 13.6 % (11.9-14.6); WBC 7.7 K/uL (4.0-11.0)
[2017-01-10 03:19] LABS: RBC 5.25 M/uL (3.50-5.50)
[2017-01-10 03:20] LABS: LACTATE 5.9 mEq/L (0.50-1.60)
[2017-01-10 03:27] LABS: INR - (THERAPEUTIC) 1.39 (0.92-1.07); PROTIME 14.6 SECONDS (9.8-11.4); PTT 37 SECONDS (25-32)
[2017-01-10 03:30] LABS: BILIRUBIN URINE NEGATIVE (NEGATIVE); BLOOD URINE 50 /UL (NEGATIVE); COLOR URINE YELLOW (YELLOW); GLUCOSE URINE NEGATIVE (NEGATIVE); KETONE URINE 150 mg/dL (NEGATIVE); LEUKOCYTES URINE NEGATIVE /UL (NEGATIVE); NITRITE URINE NEGATIVE (NEGATIVE); PROTEIN URINE 30 mg/dL (NEGATIVE); SPEC GRAVITY URINE 1.025 (1.003-1.035); TURBIDITY URINE CLEAR (CLEAR); UROBILINOGEN URINE NORMAL (NORMAL)
[2017-01-10 03:39] LABS: BACTERIA URINE MODERATE (NEGATIVE); HYALINE CAST URINE 0-2 #/LPF (NEGATIVE); WBC URINE 0-2 #/HPF (NEGATIVE)
[2017-01-10 03:51] LABS: ALBUMIN 3.9 gm/dL (3.5-5.0); ALK PHOS 117 IU/L (33-138); ALT 20 IU/L (12-78); AST 31 IU/L (10-40); BLOOD UREA NITROGEN 19 mg/dL (6-24); CALCIUM 8.4 mg/dL (8.5-10.5); CHLORIDE 95 mMol/L (96-110); CPK 137 IU/L (21-215); CREATININE 0.9 mg/dL (0.5-1.1); MAGNESIUM 2.4 mg/dL (1.8-2.6); SODIUM 134 mMol/L (135-145); TOTAL BILIRUBIN 0.6 mg/dL (0.0-1.5); TOTAL PROTEIN 7.4 g/dL (6.0-8.4)
[2017-01-10 04:04] LABS: CO2 12 mMol/L (22-32)
[2017-01-10] MEDS ORDERED: TYLENOL EXTRA500 MG PO (05:53)
[2017-01-10 09:25] LABS: HEMATOCRIT 39.5 % (33.0-46.0); HEMOGLOBIN 13.5 g/dL (10.0-15.0); MCH 29.8 pg (27.0-34.0); MCHC 34.2 gm/dL (32.0-36.5); MCV 87.2 fl (83.0-98.0); MPV 9.6 fl (9.4-12.4); RBC 4.53 M/uL (3.50-5.50); RDW-CV 13.6 % (11.9-14.6); WBC 9.3 K/uL (4.0-11.0)
[2017-01-10 09:42] LABS: CALCIUM 7.8 mg/dL (8.5-10.5); CREATININE 0.8 mg/dL (0.5-1.1)
[2017-01-10 13:12] LABS: BILIRUBIN URINE NEGATIVE (NEGATIVE); BLOOD URINE 50 /UL (NEGATIVE); COLOR URINE YELLOW (YELLOW); GLUCOSE URINE NEGATIVE (NEGATIVE); KETONE URINE 150 mg/dL (NEGATIVE); LEUKOCYTES URINE NEGATIVE /UL (NEGATIVE); NITRITE URINE NEGATIVE (NEGATIVE); PROTEIN URINE 30 mg/dL (NEGATIVE); TURBIDITY URINE CLEAR (CLEAR); UROBILINOGEN URINE NORMAL (NORMAL)
[2017-01-10 13:18] LABS: BACTERIA URINE RARE (NEGATIVE); RBC URINE 0-2 #/HPF (NEGATIVE); WBC URINE RARE #/HPF (NEGATIVE)
[2017-01-10 13:50] LABS: ALBUMIN 3.1 gm/dL (3.5-5.0); ANION GAP 12.9 (10.0-19.0); CALCIUM 7.6 mg/dL (8.5-10.5); CREATININE 0.9 mg/dL (0.5-1.1); POTASSIUM 3.9 mMol/L (3.7-5.1)
[2017-01-10 13:51] LABS: PHOSPHORUS 0.9 mg/dL (2.5-4.9)
[2017-01-11 13:02] LABS: INR - (THERAPEUTIC) 1.36 (0.92-1.07); PROTIME 14.3 SECONDS (9.8-11.4)
[2017-01-11] MEDS ORDERED: THERAGRAN-M1 TAB PO (15:10)
[2017-01-11] MEDS ORDERED: NICOTINE PATCH1 EAC2 TRANS (15:24)
[2017-01-11] MEDS ORDERED: BUSPAR10 MG PO (15:31)
== END 2017-01-11 16:00 | disposition disaster alternative care site (69) | DRG 897 ==
LOC: GMED 02:50 → GPCU 04:55
PROVIDERS: Emergency Medicine; Family Medicine; ADMIT Internal Medicine
DX: F10.239 Alcohol dependence with withdrawal, unspecified (principal); E87.2 Acidosis; I50.32 Chronic diastolic (congestive) heart failure; E46 Unspecified protein-calorie malnutrition; E87.1 Hypo-osmolality and hyponatremia; I48.0 Paroxysmal atrial fibrillation; I10 Essential (primary) hypertension; Z68.1 Body mass index [BMI] 19.9 or less, adult; G47.33 Obstructive sleep apnea (adult) (pediatric); F32.9 Major depressive disorder, single episode, unspecified; F41.9 Anxiety disorder, unspecified; Z90.710 Acquired absence of both cervix and uterus; K76.0 Fatty (change of) liver, not elsewhere classified; F43.10 Post-traumatic stress disorder, unspecified; Z79.01 Long term (current) use of anticoagulants; F17.210 Nicotine dependence, cigarettes, uncomplicated; K80.20 Calculus of gallbladder without cholecystitis without obstruction; R91.1 Solitary pulmonary nodule
CPT/HCPCS: A9270; G0480; J1650; J2405; J3411; J7030; J7042; Q9967

== ENCOUNTER → 2017-01-10 | Outpatient (CLI) | payer SELFPAY | END | disposition disaster alternative care site (69) | LOC: GAMB 02:33 | DX: F41.9 Anxiety disorder, unspecified (principal); F10.129 Alcohol abuse with intoxication, unspecified; R11.10 Vomiting, unspecified; R06.9 Unspecified abnormalities of breathing; Z79.01 Long term (current) use of anticoagulants; Z79.52 Long term (current) use of systemic steroids; Z79.899 Other long term (current) drug therapy | CPT/HCPCS: A0425; A0429; J7030 ==